=== PATIENT | female | born 1960 | race Caucasian/White ===

== ENCOUNTER → 2022-10-12 | Outpatient (CLI) | payer OTHER ==
--- NOTE | 2022-10-13 07:42 | CT ---
EXAMINATION TYPE: CT chest w con DATE OF EXAM: 10/12/2022 COMPARISON: None HISTORY: Lung nodule on left lung. CT DLP: 458.6 mGycm, Automated exposure control for dose reduction was used. CONTRAST: Performed injected with 100 ml mL of Isovue 300. TECHNIQUE: Axial images were obtained at 5 mm thick sections. Reconstructed images are reviewed on [employer] computer in the coronal plane. FINDINGS: Portion of the thyroid visualized is normal. Right lobe thyroid may be surgically absent. There is a 1.2 cm nodule in the periphery of the left lung. Series 204 image 36. Additional workup wi th PET CT is recommended. No enlarged mediastinal or hilar adenopathy is evident. The ascending aorta diameter at the level o f the main pulmonary artery is 3.6 cm. The main pulmonary artery diameter at the bifurcation is 2.6 cm. There is a small hiatal hernia. Limited CT sections are obtained through the upper abdomen. Gallstones are present. IMPRESSIONS: 1. 1.2 cm peripheral left midlung nodule. PET/CT is recommended workup. 2. Cholelithiasis. 3. Small hiatal hernia
== END | disposition home or self-care (01) ==
LOC: RADCTMAIN 14:38
PROVIDERS: ATTEND Internal Medicine Critical Care Medicine
DX: R91.1 Solitary pulmonary nodule (principal); K80.20 Calculus of gallbladder without cholecystitis without obstruction; K44.9 Diaphragmatic hernia without obstruction or gangrene
CPT/HCPCS: 71260; Q9967

== ENCOUNTER → 2023-07-27 | Outpatient (CLI) | payer OTHER ==
--- NOTE | 2023-07-27 16:54 | CT ---
EXAMINATION TYPE: CT chest w con DATE OF EXAM: 07/27/2023 COMPARISON: 02-13 HISTORY: pulmonary nodule CT DLP: 410.30 mGycm, Automated exposure control for dose reduction was used. CONTRAST: Performed injected with 100 mL of Isovue 300. TECHNIQUE: Axial images were obtained at 5 mm thick sections. Reconstructed images are reviewed on [employer] computer in the coronal plane. FINDINGS: Left lobe thyroid is enlarged and extends towards the mediastinum. Small hypodensities with in the inferior left lobe thyroid. There is a 1.2 cm circumscribed nodule within the periphery of the left midlung. This measures 1.1 cm on the prior exam. No enlarged mediastinal or hilar adenopathy is evident. The ascending aorta diameter at the level o f the main pulmonary artery is 3.6 cm. The main pulmonary artery diameter at the bifurcation is 2.[address] sections are obtained through the upper abdomen. Small hiatal hernia is present. Cholelith iasis is present. IMPRESSION: 1. 1.2 cm nodule has enlarged 1 mm from the study 6 months prior. Recommend PET/CT for additional wor kup. 2. Cholelithiasis.
== END | disposition home or self-care (01) ==
LOC: RADCTMAIN 12:14
PROVIDERS: ATTEND Internal Medicine Critical Care Medicine
DX: K80.20 Calculus of gallbladder without cholecystitis without obstruction (principal); R91.1 Solitary pulmonary nodule
CPT/HCPCS: 71260; Q9967

== ENCOUNTER → 2024-01-17 | Outpatient (CLI) | payer OTHER ==
--- NOTE | 2024-01-17 13:14 | CT ---
EXAMINATION TYPE: CT chest w con CT DLP: 553 mGycm, Automated exposure control for dose reduction was used. DATE OF EXAM: 01/17/2024 1:04 PM COMPARISON: Multiple CT chest with most recent 07/27/2023. CLINICAL INDICATION:Female, 63 years old with history of R91.1 SOLITARY PULMONARY NODULE; PHH, Solita ry pulmonary nodule TECHNIQUE: Multiple axial images were obtained through the chest following the administration of 100 cc of Isovue 300. . Coronal and sagittal reformats reviewed. FINDINGS: LUNGS/ PLEURA: No pleural effusion, pneumothorax, focal consolidation. Stable left upper lobe lateral 1.1 cm pulmonary nodule (series 4, image 32). Stable right midlung 0.2 cm pulmonary nodule (series 4 , image 30). No new or enlarging pulmonary nodules. AIRWAY: Patent and unremarkable.. HEART: Size within normal limits. No pericardial effusion. Mild coronary artery calcifications. MEDIASTINUM: No evidence of adenopathy. VASCULATURE: No aortic aneurysm. MUSCULOSKELETAL: Mild disc degeneration changes are present throughout the thoracolumbar spine. No ac adam osseous abnormality. No aggressive osseous lesion. Remote left-sided rib fractures. SOFT TISSUES/LYMPH NODES: Unremarkable. LOWER NECK: Right thyroid lobe appears surgically absent. Subcentimeter hypodense nodule redemonstrat ed within the left thyroid lobe.. UPPER ABDOMEN: Hyperdense material within the gallbladder. Small hiatal hernia. IMPRESSION: 1. Stable left upper lobe 1.1 cm pulmonary nodule dating back to 10/12/2022 exam. Additional stable ri ght midlung 0.2 cm pulmonary nodule. No new or enlarging pulmonary nodules. Consider further evaluati on with PET/CT and/or continued surveillance. 2. Cholelithiasis. 3. Small hiatal hernia. [facility], , 01/17/2024 1:11 PM
== END | disposition home or self-care (01) ==
LOC: RADCTMAIN 12:08
PROVIDERS: ATTEND Internal Medicine Critical Care Medicine
DX: R91.1 Solitary pulmonary nodule
CPT/HCPCS: 71260